=== PATIENT | female | born 1995 | race Hispanic/Latino ===

== ENCOUNTER 2025-01-30 10:19 | Emergency (ER) | payer OTHER ==
[~2025-01-30] VITALS: Ht 165.1 cm; Wt 79.6 kg
[2025-01-30 10:25] VITALS: PULSE 58; RESP 16; TEMP 97.3; O2SAT 100
[2025-01-30] MEDS ORDERED: MOTRIN800 MG PO (10:57)
[2025-01-30] MEDS ORDERED: TYLENOL325 MG PO (10:57)
[2025-01-30] MEDS: DEXAMETHASONE SOD PHOS INJ 4 MG/ML SDV IM ONE (11:36)
[2025-01-30] MEDS: IBUPROFEN 200 MG TAB PO ONE (11:36)
[2025-01-30] MEDS: ACETAMINOPHEN 325 MG TAB PO ONE (11:36)
== END 2025-01-30 11:38 | disposition home or self-care (01) ==
LOC: FSED 10:25
DX: M54.6 Pain in thoracic spine (principal); M79.18 Myalgia, other site; M25.512 Pain in left shoulder; M25.511 Pain in right shoulder; F17.210 Nicotine dependence, cigarettes, uncomplicated
CPT/HCPCS: 71046; 99284; J1100